=== PATIENT | female | born 1950 | race Caucasian/White ===

== ENCOUNTER 2016-09-13 14:53 | Emergency (ER) | payer MEDICARE, MEDICAID ==
[~2016-09-13] VITALS: Ht 167.6 cm; Wt 77.1 kg
[~2016-09-13 14:53] MED LIST: ALBU90AE; AMIO100T4 PO; ATOR10TA PO; CARI350T PO; CELE100C2 PO; DABI150C PO; DIVA500T2 PO; ESOM40CA PO; FLUO-120 PO; FURO-144 PO; HYDR-548 PO; ISOS20TA6 PO; LEVO750T21 PO; LORA10TA68 PO; METF500T4 PO; NITR0.4T SL; NYST30CR3 TP; OXYB5TAB11 PO; PRED20TA PO; PREG50CA PO; RIVA3CAP3 PO; TEMA30CA PO; TRIA60LO8 TP; VALS160T2 PO
--- NOTE | 2016-09-13 14:53 | NUR ---
BB SELF FOR SOB AND TIGHTNESS. NAD NOTED. PT AAO X4, AMB WITH STEADY GAIT. RR EVEN AND UNLABORED. PT PLACED IN GOWN AND MONITOR. AWAITING MD FOR EVAL.
[2016-09-13] MEDS ORDERED: ALBUTEROL FS 2.5 MG/3 ML VIAL.NEB CONTNEB STA ×2 (15:31→16:16)
[2016-09-13] MEDS ORDERED: ALBUTEROL FS 2.5 MG/3 ML VIAL.NEB ONE ×2 (15:38→16:23)
[2016-09-13] MEDS ORDERED: IPRATROPIUM NEB FS 0.5 MG/2.5 ML AMPUL.NEB ONE ×2 (15:38→16:23)
[2016-09-13] MEDS: IPRATROPIUM NEB FS 0.5 MG/2.5 ML AMPUL.NEB NEB PRN ×2 (15:40→16:25)
[2016-09-13] MEDS ORDERED: AZITHROMYCIN 250 MG TABLET PO STA (15:42)
[2016-09-13] MEDS ORDERED: methylPREDNISolone SOD SUCC 125 MG/2ML VIAL ONE (15:53)
[2016-09-13] MEDS ORDERED: methylPREDNISolone SOD SUCC 125 MG/2ML VIAL IV SCH (16:00)
[2016-09-13] MEDS ORDERED: AZITHROMYCIN 250 MG TABLET ONE (16:05)
[2016-09-13] MEDS ORDERED: LEVOFLOXACIN (500MG) 500 MG TABLET ONE (16:19)
--- NOTE | 2016-09-13 16:20 | NUR ---
CALLED RT FOR BREATHING TREATMENT
[2016-09-13] MEDS ORDERED: LEVOFLOXACIN (500MG) 500 MG TABLET PO STA (16:24)
[2016-09-13 17:06] VITALS: BP 144/71
--- NOTE | 2016-09-13 17:08 | NUR ---
Patient discharged to home in stable condition. Written and verbal after care instructions given. Patient verbalizes understanding of instruction.IV removed. Catheter intact and site benign. Pressure and 4x4 applied to site. No bleeding noted. ambulatory with steady gait. no further complaints.
== END 2016-09-13 17:08 | disposition home or self-care (01) ==
LOC: ER 14:58
DX: J44.1 Chronic obstructive pulmonary disease with (acute) exacerbation (principal); J45.909 Unspecified asthma, uncomplicated; I10 Essential (primary) hypertension; K21.9 Gastro-esophageal reflux disease without esophagitis; E11.9 Type 2 diabetes mellitus without complications; H54.8 Legal blindness, as defined in USA; Z88.0 Allergy status to penicillin; Z88.1 Allergy status to other antibiotic agents; Z88.8 Allergy status to other drugs, medicaments and biological substances
CPT/HCPCS: 71010-TC; A4606; J2930; Z7610

== ENCOUNTER 2018-02-23 12:51 | Emergency (ER) | payer MEDICARE, MEDICAID ==
[~2018-02-23] VITALS: Ht 154.9 cm; Wt 93.0 kg
[~2018-02-23 12:51] MED LIST changes: -METF500T4 PO; +METF500T6 PO
[2018-02-23] MEDS ORDERED: predniSONE 20 MG TABLET PO ONE (13:00)
[2018-02-23] MEDS ORDERED: ALBUTEROL FS 2.5 MG/3 ML VIAL.NEB NEB ONE (13:00)
[2018-02-23] MEDS ORDERED: IPRATROPIUM NEB FS 0.5 MG/2.5 ML AMPUL.NEB NEB ONE (13:00)
--- NOTE | 2018-02-23 13:00 | NUR ---
BIBRA 102 C/O SOB, PT USED HER NEBULIZER AT HOME TOWER HAND WITH NO RELIEF. NOTED AUDIBLE WHEEZING. MD AT BS FOR EVAL. CALLED FOR RT. SAFETY AND COMFORT MEASURES PROVIDED. WILL MONITOR.
[2018-02-23] MEDS ORDERED: predniSONE 20 MG TABLET ONE (13:07)
[2018-02-23] MEDS ORDERED: IPRATROPIUM NEB FS 0.5 MG/2.5 ML AMPUL.NEB ONE (13:13)
[2018-02-23] MEDS ORDERED: ALBUTEROL FS 2.5 MG/3 ML VIAL.NEB ONE (13:13)
--- NOTE | 2018-02-23 13:39 | NUR ---
CA AT BS.
[2018-02-23] MEDS ORDERED: ALBUTEROL FS 2.5 MG/0.5 ML VIAL.NEB ONE (13:41)
[2018-02-23 13:47] LABS: BASOPHILS # (AUTO) 0.1 /CMM (0.0-0.2); BASOPHILS % (AUTO) 0.8 % (0.0-2.0); HEMATOCRIT 38 % (33-45); LYMPHOCYTES # (AUTO) 3.3 /CMM (0.8-4.8); MEAN CORPUSCULAR HEMOGLOBIN 31 PG (26.0-33.0); MEAN CORPUSCULAR HGB CONC 34 g/dl (31.0-36.0); MEAN CORPUSCULAR VOLUME 90 fL (82-100); MONOCYTES # (AUTO) 0.5 /CMM (0.1-1.30); MONOCYTES % (AUTO) 4.1 % (2.0-12.0); NEUTROPHILS # (AUTO) 8.1 /CMM (1.8-8.9); NEUTROPHILS % (AUTO) 67.1 % (43.0-81.0); PLATELET COUNT (AUTO) 210 /CMM (150-450); RDW COEFFICIENT OF VARIATION 12.9 (11.5-15.0); RED BLOOD CELL COUNT(AUTO) 4.24 MIL/uL (4.0-5.2); WHITE BLOOD COUNT (AUTO) 12.1 K/uL (4.3-11.0)
[2018-02-23 13:53] LABS: CALCIUM, SERUM 8.5 mg/dL (8.5-10.1); CARBON DIOXIDE 26 mmol/L (21-32); CHLORIDE 106 mmol/L (98-107); CREATININE 0.7 mg/dL (0.6-1.3); GLUCOSE 114 mg/dL (74-106); POTASSIUM 3.7 mmol/L (3.5-5.1); SODIUM SERUM 140 mmol/L (136-145); UREA NITROGEN, BLOOD 12 mg/dL (7-18)
[2018-02-23] MEDS ORDERED: ALBUTEROL FS 2.5 MG/0.5 ML VIAL.NEB NEB ONE (14:00)
[2018-02-23 14:01] LABS: TROPONIN I < 0.017 ng/mL (0.00-0.056)
[2018-02-23 14:06] LABS: B-TYPE NATRIURETIC PEPTIDE 843 PG/ML (0-125)
--- NOTE | 2018-02-23 14:16 | NUR ---
CALLED [facility] ENGRAVING PRESS OPERATOR WAS PAGED.
[2018-02-23 14:30] VITALS: BP 132/89
--- NOTE | 2018-02-23 15:01 | NUR ---
REPORT GIVEN TO SILVIA JOHNSON FOR 315-2.
[2018-02-23] MEDS ORDERED: DILT120C47 PO (15:11)
[2018-02-23] MEDS ORDERED: MELO-107 PO (15:11)
[2018-02-23] MEDS ORDERED: ISOS30TA6 PO (15:11)
[2018-02-23] MEDS ORDERED: ASPI-869 PO (15:11)
--- NOTE | 2018-02-23 15:16 | NUR ---
DR. ELSA Rubin AT AND WILL DISCHARGE PATIENT TO HOME. ORDERS CARRIED OUT. GAVE PT RX FOR PREDNISONE AND AZITHROMYCIN. Addendum: 02/23/18 at 1533 by BETTINA ABX CHANGED TO CRISTOBAL
== END 2018-02-23 15:36 | disposition home or self-care (01) ==
LOC: ER 12:52 → TELE 15:15 → UNDOADMIN 15:15 → ER 15:36
DX: J44.1 Chronic obstructive pulmonary disease with (acute) exacerbation (principal); G40.909 Epilepsy, unspecified, not intractable, without status epilepticus; I50.9 Heart failure, unspecified; I48.91 Unspecified atrial fibrillation; K21.9 Gastro-esophageal reflux disease without esophagitis; E11.9 Type 2 diabetes mellitus without complications; H54.8 Legal blindness, as defined in USA; E66.9 Obesity, unspecified; Z88.0 Allergy status to penicillin; Z88.1 Allergy status to other antibiotic agents; Z88.8 Allergy status to other drugs, medicaments and biological substances; Z60.2 Problems related to living alone; Z87.891 Personal history of nicotine dependence
CPT/HCPCS: 36415; 71045; 80048; 83880; 84484; 85025; 93005; 94640 ×2; 99285; A4606; J7512; Z7610

== ENCOUNTER 2018-06-16 14:28 | Inpatient (IN) | payer MEDICARE, MEDICAID ==
[~2018-06-16] VITALS: Ht 160 cm; Wt 96.2 kg
[~2018-06-16 14:28] MED LIST changes: -ALBU90AE; +ASPI-869 PO; -CELE100C2 PO; -DABI150C PO; +DILT120C47 PO; -DIVA500T2 PO; +HYDR-4354 PO; -HYDR-548 PO; -ISOS20TA6 PO; +ISOS30TA6 PO; -LEVO750T21 PO; -LORA10TA68 PO; +MELO-107 PO; +METF-440 PO; -METF500T6 PO; -NITR0.4T SL; -NYST30CR3 TP; -PRED20TA PO; -TEMA30CA PO; -TRIA60LO8 TP
--- NOTE | 2018-06-16 15:50 | NUR ---
PT WAS BROUGHT UP TO THE FLOOR AT THIS TIME
[2018-06-16] MEDS ORDERED: IV NS 0.9% 1,000 ML IV PRN (15:56)
[2018-06-16] MEDS ORDERED: ONDANSETRON HCL/PF 4 MG/2 ML VIAL IVP PRN (16:00)
[2018-06-16] MEDS ORDERED: ACETAMINOPHEN 325 MG TABLET PO PRN (16:00)
[2018-06-16] MEDS ORDERED: ZOLPIDEM TARTRATE 5 MG TABLET PO PRN (16:00)
--- NOTE | 2018-06-16 16:16 | NUR ---
ADMISSION NOTES PT WAS RECEIVED FROM EMT DIRECT ADMIT FROM JEREMIAS, A/O X3, AMBULATORY, RIGHT AC 20 GAUGE IV THAT IS PATENT AND INTACT, PT REFUSED SKIN ASSESSMENT, BELONGINGS WERE BROUGHT ALONG WITH THE PATIENT, NOTED TO BE SOB ON EXERTION. WILL MONITOR ACCORDINGLY
[2018-06-16] MEDS ORDERED: HYDROCODONE/APAP 10/325MG 1 EA TABLET PO PRN (16:30)
--- NOTE | 2018-06-16 16:30 | NUR ---
PT WAS ADMITTED TO THIS FLOOR AND IS NOW CURRENTLY THREATENING TO LEAVE A
--- NOTE | 2018-06-16 16:35 | NUR ---
DR. MINA WILKERSON PRESENT AT BEDSIDE TALKING TO PT
[2018-06-16] MEDS ORDERED: PRED20TA PO (16:57)
[2018-06-16] MEDS ORDERED: CEFU500T66 PO (16:57)
[2018-06-16] MEDS ORDERED: AZITHROMYCIN 250 MG TABLET PO SCH (17:00)
[2018-06-16] MEDS ORDERED: DOXYCYCLINE HYCLATE (100 MG) 100 MG TABLET PO SCH (17:00)
[2018-06-16] MEDS ORDERED: CARISOPRODOL 350 MG TABLET PO SCH (17:00)
[2018-06-16] MEDS ORDERED: INSULIN REGULAR, HUMAN 100 UNIT/ML 3 ML VIAL SQ ONE (17:00)
[2018-06-16] MEDS ORDERED: PREGABALIN 25 MG CAPSULE PO SCH (17:00)
--- NOTE | 2018-06-16 17:00 | NUR ---
JONA WILKERSON TALKED TO PT BUT UNABLE TO CONVINCE HER TO STAY. SHE WAS ADAMANT ABOUT LEAVING AND EVEN AFTER RECEIVING EDUCATION FROM THE DOCTOR SHE REFUSED TO LISTEN TO HIS RECOMMENDATIONS. DR. WILKERSON ORDERED A BLOOD SUGAR CHECK WHILE TALKING TO HER AND HER BLOOD GLUCOSE CAMEBACK AT 238. HE ORDERED 4 UNITS OF INSULIN WHICH WERE GIVEN. IV AND ID BANDS WERE REMOVED RIGHT BEFORE THE PATIENT LEFT. AMA PAPER WAS SIGNED BY THE PATIENT. PATIENT LEFT AMA AT THIS TIME Addendum: 06/16/18 at 1728 by YOON DILL RN PT ALSO REFUSED TO ACCEPT AND SIGN [employer] PAPERWORK
[2018-06-16 17:11] LABS: HEMATOCRIT 42 % (33-45); HEMOGLOBIN 13.9 g/dL (11.5-14.8); MEAN CORPUSCULAR HGB CONC 34 g/dl (31.0-36.0); MEAN CORPUSCULAR VOLUME 93 fL (82-100); PLATELET COUNT (AUTO) 210 /CMM (150-450); RED BLOOD CELL COUNT(AUTO) 4.44 MIL/uL (4.0-5.2); WHITE BLOOD COUNT (AUTO) 12.8 K/uL (4.3-11.0)
[2018-06-16] MEDS ORDERED: PANTOPRAZOLE 40 MG TABLET.DR PO SCH (18:00)
--- NOTE | 2018-06-16 18:31 | NUR ---
Incident Report was filed for pt leaving A Unique Id: [id number]
[2018-06-16] MEDS ORDERED: ALBUTEROL FS 2.5 MG/0.5 ML VIAL.NEB NEB SCH (19:30)
[2018-06-16] MEDS ORDERED: IPRATROPIUM NEB FS 0.5 MG/2.5 ML AMPUL.NEB NEB SCH (19:30)
[2018-06-16] MEDS ORDERED: AMIODARONE HCL 200 MG TABLET PO SCH (21:00)
[2018-06-16] MEDS ORDERED: CEFTRIAXONE 1 G in IV D5W 50 ML IV SCH (22:00)
[2018-06-16] MEDS ORDERED: ATORVASTATIN 10 MG TABLET PO SCH (22:00)
[2018-06-16] MEDS ORDERED: MONTELUKAST SODIUM (10MG) 10 MG TABLET PO SCH (22:00)
[2018-06-17] MEDS ORDERED: FUROSEMIDE 40 MG TABLET PO SCH (09:00)
[2018-06-17] MEDS ORDERED: VALSARTAN 80 MG TABLET PO SCH (09:00)
[2018-06-17] MEDS ORDERED: FLUOXETINE HCL 20 MG CAPSULE PO SCH (09:00)
[2018-06-17] MEDS ORDERED: OXYBUTYNIN CHLORIDE 5 MG TABLET PO SCH (09:00)
[2018-06-17] MEDS ORDERED: ISOSORBIDE MONONITRATE (30MG) 30 MG TAB.SR.24H PO SCH (09:00)
[2018-06-17] MEDS ORDERED: RIVASTIGMINE TARTRATE 1.5 MG CAPSULE PO SCH (09:00)
[2018-06-17] MEDS ORDERED: DILTIAZEM HCL CD 120 MG PO SCH (09:00)
[2018-06-17] MEDS ORDERED: ASPIRIN EC 325 MG TABLET.DR PO SCH (09:00)
== END 2018-06-16 17:00 | disposition left against medical advice (07) | DRG 190 ==
LOC: TELE 15:05
PROVIDERS: ADMIT Nurse Practitioner Acute Care; ATTEND Nurse Practitioner Acute Care
DX: J44.0 Chronic obstructive pulmonary disease with (acute) lower respiratory infection (principal); J15.9 Unspecified bacterial pneumonia; D68.59 Other primary thrombophilia; I48.92 Unspecified atrial flutter; J44.1 Chronic obstructive pulmonary disease with (acute) exacerbation; F17.210 Nicotine dependence, cigarettes, uncomplicated; E11.9 Type 2 diabetes mellitus without complications; I10 Essential (primary) hypertension; I25.10 Atherosclerotic heart disease of native coronary artery without angina pectoris; I48.91 Unspecified atrial fibrillation; K21.9 Gastro-esophageal reflux disease without esophagitis; F31.9 Bipolar disorder, unspecified; Z79.82 Long term (current) use of aspirin; Z79.84 Long term (current) use of oral hypoglycemic drugs
CPT/HCPCS: 36415; 82962-TC; 85027-TC; A4606; G0378; J0696; J1815; J7060; Z7610

== ENCOUNTER 2020-01-31 22:37 | Inpatient (IN) | payer MEDICARE, OTHER ==
[~2020-01-31] VITALS: Ht 153.2 cm; Wt 80.8 kg
[~2020-01-31 22:37] MED LIST changes: +CEFU500T66 PO; -FLUO-120 PO; +FLUO20CA42 PO; -OXYB5TAB11 PO; +OXYB5TAB16 PO; +PRED20TA PO
--- NOTE | 2020-01-31 22:50 | NUR ---
PATIENT CAME TO ER BED 11 BIB RA FROM HOME C/O NONRADIATING MIDSTERNAL CHEST PAIN SINCE 2099. PATIENT STATES THAT SHE WAS NOT DOING ANYTHING STRENUOUS AT THE TIME. PATIENT ALSO STATES SHE TOOK 2 SL NITROGLYCERIN TABLETS PRIOR TO ARRIVAL WITH NO RELIEF. PATIENT IS AAOX4. NO SOB. BREATHING EVENLY AND UNLABORED ON ROOM AIR. CONNECTED TO THE MONITOR.
--- NOTE | 2020-01-31 22:59 | NUR ---
BLOOD COLLECTED AND SENT TO LAB.
--- NOTE | 2020-01-31 23:01 | NUR ---
EKG AT BEDSIDE
[2020-01-31 23:06] LABS: BASOPHILS # (AUTO) 0.1 /CMM (0.0-0.2); BASOPHILS % (AUTO) 0.8 % (0.0-2.0); EOSINOPHILS % (AUTO) 1.7 % (0.0-6.0); HEMATOCRIT 38 % (33-45); HEMOGLOBIN 12.7 g/dL (11.5-14.8); LYMPHOCYTES # (AUTO) 4.2 /CMM (0.8-4.8); LYMPHOCYTES % (AUTO) 37.1 % (20.0-44.0); MEAN CORPUSCULAR HGB CONC 33 g/dl (31.0-36.0); MEAN CORPUSCULAR VOLUME 94 fL (82-100); MONOCYTES # (AUTO) 0.7 /CMM (0.1-1.30); MONOCYTES % (AUTO) 5.8 % (2.0-12.0); NEUTROPHILS # (AUTO) 6.1 /CMM (1.8-8.9); NEUTROPHILS % (AUTO) 54.6 % (43.0-81.0); PLATELET COUNT (AUTO) 189 /CMM (150-450); RED BLOOD CELL COUNT(AUTO) 4.06 MIL/uL (4.0-5.2); WHITE BLOOD COUNT (AUTO) 11.2 K/uL (4.3-11.0)
[2020-01-31 23:20] LABS: CALCIUM, SERUM 8.5 mg/dL (8.5-10.1); CARBON DIOXIDE 25 mmol/L (21-32); CHLORIDE 107 mmol/L (98-107); CREATININE 0.7 mg/dL (0.6-1.3); GLUCOSE 111 mg/dL (74-106); POTASSIUM 3.8 mmol/L (3.5-5.1); SODIUM SERUM 142 mmol/L (136-145); UREA NITROGEN, BLOOD 16 mg/dL (7-18)
--- NOTE | 2020-01-31 23:21 | NUR ---
, JUVENAL NICHOLSONZ, SON'S PHONE NUMBER.
--- NOTE | 2020-01-31 23:35 | NUR ---
PATIENT'S CORONAVIRUS SWAB SAMPLE COLLECTED AND SENT TO THE LABORATORY.
[2020-01-31 23:46] LABS: B-TYPE NATRIURETIC PEPTIDE 594 PG/ML (0-125)
[2020-01-31] MEDS ORDERED: ONDANSETRON HCL/PF 4 MG/2 ML VIAL ONE (23:56)
[2020-01-31] MEDS ORDERED: MORPHINE SULFATE INJ 2 MG/ML DISP.SYRIN ONE (23:56)
[2020-02-01] MEDS ORDERED: ONDANSETRON HCL/PF 4 MG/2 ML VIAL IVP ONE
--- NOTE | 2020-02-01 00:24 | NUR ---
ANGELA DNP AT BEDSIDE FOR EVALUATION
--- NOTE | 2020-02-01 00:34 | NUR ---
BED ASSIGNMENT 304-2
--- NOTE | 2020-02-01 00:34 | NUR ---
REC'D NEG COVID RESULTS
--- NOTE | 2020-02-01 00:54 | NUR ---
REPORT GIVEN TO PERRY JOHNSON FOR HERNÁN.
[2020-02-01] MEDS ORDERED: NITROGLYCERIN PACKET 1 GM PACKET ONE (00:57)
[2020-02-01] MEDS ORDERED: MORPHINE SULFATE INJ 4 MG/ML DISP.SYRIN ONE (00:57)
[2020-02-01] MEDS ORDERED: ONDANSETRON HCL/PF 4 MG/2 ML VIAL IVP PRN (01:00)
[2020-02-01] MEDS ORDERED: ACETAMINOPHEN 325 MG TABLET PO PRN (01:00)
[2020-02-01] MEDS ORDERED: TRAZODONE 50 MG TABLET PO PRN (01:00)
[2020-02-01] MEDS ORDERED: DEXTROSE 50%-WATER 50 ML DISP.SYRIN IV PRN (01:00)
[2020-02-01] MEDS ORDERED: HYDROCODONE/APAP 5/325MG 1 EACH TABLET PO PRN (01:00)
[2020-02-01] MEDS ORDERED: diphenhydrAMINE HCL 25 MG CAPSULE PO PRN (01:00)
[2020-02-01] MEDS ORDERED: INSULIN REGULAR, HUMAN 100 UNIT/ML 3 ML VIAL SQ PRN (01:00)
[2020-02-01] MEDS ORDERED: MAG HYDROX/AL HYDROX/SIMETH 30 ML UDC PO PRN (01:00)
[2020-02-01] MEDS ORDERED: MORPHINE SULFATE INJ 2 MG/ML DISP.SYRIN IV ONE ×2 (01:00)
[2020-02-01] MEDS ORDERED: MORPHINE SULFATE INJ 2 MG/ML DISP.SYRIN IV PRN (01:00)
[2020-02-01] MEDS ORDERED: NITROGLYCERIN PACKET 1 GM PACKET TD ONE (01:00)
[2020-02-01] MEDS ORDERED: MAGNESIUM HYDROXIDE 30 ML UDC PO PRN (01:00)
--- NOTE | 2020-02-01 01:15 | NUR ---
PATIENT ARRIVED FROM ER, AWAKE A/O X4. NO SOB NOTED. NO COMPLAIN OF CHEST PAIN AT THIS TIME. AMBULATED TO THE BATHROOM WITH STEADY GAIT. PATIENT SAID THAT SHE IS LEGALLY BLIND. BED ALARM ON. CALL LIGHT WITHIN REACH. BED IN LOWEST AND LOCKED POSITION.
--- NOTE | 2020-02-01 01:20 | NUR ---
PATIENT TAKEN TO ASSIGNED ROOM.
[2020-02-01 01:30] VITALS: BP 121/87
--- NOTE | 2020-02-01 02:11 | NUR ---
PATIENT REFUSED THE BED ALARM ON. ADVISED THE IMPORTANCE OF BED ALARM PATIENT STILL REFUSED, PATIENT WAS MAD, CHARGE NURSE MADE AWARE. PATIENT IS SITTING AT THE EDGE OF THE BED. CALL LIGHT WITHIN REACH. BED IN LOWEST AND LOCKED POSITION.
--- NOTE | 2020-02-01 03:03 | NUR ---
PATIENT JUST HAD A SNACK, PATIENT IN BED, BED ALARM ON, MECHANICAL INSULATOR GENICE AWARE THAT THE PATIENT IS FALL RISK. CALL LIGHT WITHIN REACH.
--- NOTE | 2020-02-01 04:30 | NUR ---
PATIENT WAS ASKING FOR APAP FOR HER SLEEP APNEA,ADVISED PATIENT THAT ORDER FROM THE MD NEEDS TO BE OBTAINED, THEN PATIENT VERBALIZED " BUT YOU DON'T HAVE IT HERE I KNOW". OFFERED AN O2 FOR NOW PATIENT REFUSED. CHARGE NURSE AWARE. PATIENT WAS ANGRY AND RUDE, AND YELLING.
--- NOTE | 2020-02-01 04:50 | NUR ---
PATIENT VERBALIZED THAT SHE WANTS TO GO AMA. CHARGE NURSE AWARE. INFORMED LINDEN.
--- NOTE | 2020-02-01 04:56 | NUR ---
PATIENT REFUSED TO SIGN THE AMA FORM, CHARGE NURSE AWARE. RIGHT AC G20 REMOVED,TIP IS INTACT. NO BLEEDING NOTED.
--- NOTE | 2020-02-01 05:16 | NUR ---
PAINT ROLLER COVERMAKERMj VALERA MADE AWARE THAT THE PATIENT REFUSED TO SIGN THE AMA FORM.
--- NOTE | 2020-02-01 05:48 | NUR ---
PATIENT COMPLAINED OF CHEST PAIN 01/31. AND VERBALIZED" I WANT TO STAY, I CANNOT LEAVE". CHARGE NURSE AWARE. OFFERED THE NORCO FOR NOW SINCE THE PATIENT HAS NO IV SITE, PATIENT REFUSED. SHE SAID SHE WILL WAIT UNTIL THE IV REINSERTED.
[2020-02-01 05:56] VITALS: BP 122/53
--- NOTE | 2020-02-01 06:20 | NUR ---
PATIENT LEFT AMA WITHOUT SIGNING THE AMA FORM, CHARGE NURSE AWARE. AND MS. WALSH. INSTRUCTED PATIENT THE RISKS OF AMA AND BENEFITS OF STAYING.
--- NOTE | 2020-02-01 06:47 | NUR ---
TRAN CHEATHAM RE: PATIENT LEFT AMA AT 0620.
[2020-02-01] MEDS ORDERED: PANTOPRAZOLE 40 MG TABLET.DR PO SCH (07:30)
[2020-02-01] MEDS ORDERED: BLOOD SUGAR DIAGNOSTIC 1 EACH STRIP IN SCH (07:30)
[2020-02-01] MEDS ORDERED: METFORMIN 500 MG TABLET PO SCH (08:00)
[2020-02-01] MEDS ORDERED: AMIODARONE HCL 200 MG TABLET PO SCH (08:00)
--- NOTE | 2020-02-01 08:03 | NUR ---
INCIDENT REPORT NUMBER [id number]
[2020-02-01] MEDS ORDERED: FLUOXETINE HCL 20 MG CAPSULE PO SCH (09:00)
[2020-02-01] MEDS ORDERED: POTASSIUM CHLORIDE 10 MEQ TABLET.SA PO SCH (09:00)
[2020-02-01] MEDS ORDERED: ISOSORBIDE MONONITRATE (30MG) 30 MG TAB.SR.24H PO SCH (09:00)
[2020-02-01] MEDS ORDERED: DILTIAZEM HCL CD 120 MG PO SCH (09:00)
[2020-02-01] MEDS ORDERED: FUROSEMIDE 40 MG TABLET PO SCH (09:00)
[2020-02-01] MEDS ORDERED: ASPIRIN 81 MG TAB.CHEW PO SCH (09:00)
[2020-02-01] MEDS ORDERED: VALSARTAN 80 MG TABLET PO SCH (09:00)
[2020-02-01] MEDS ORDERED: TIOT4MIS2 INH (17:31)
[2020-02-01] MEDS ORDERED: DIVA-78 PO (17:31)
[2020-02-01] MEDS ORDERED: ALPR0.5T8 PO (17:31)
[2020-02-01] MEDS ORDERED: POTA10CA43 PO (17:31)
[2020-02-01] MEDS ORDERED: NITR0.4T48 SL (21:08)
[2020-02-01] MEDS ORDERED: ATORVASTATIN 10 MG TABLET PO SCH (22:00)
[2020-02-02] MEDS ORDERED: IV NS 0.9% 250 ML IV ONE (12:50)
[2020-02-02] MEDS ORDERED: IOHEXOL-350 100 ML VIAL IV ONE (12:50)
== END 2020-02-01 06:20 | disposition left against medical advice (07) | DRG 303 ==
LOC: ER 22:40 → TELE 02-01 00:37
PROVIDERS: ADMIT Nurse Practitioner Acute Care; ATTEND Nurse Practitioner Acute Care
DX: I25.10 Atherosclerotic heart disease of native coronary artery without angina pectoris (principal); I48.20 Chronic atrial fibrillation, unspecified; E66.9 Obesity, unspecified; E78.5 Hyperlipidemia, unspecified; F17.210 Nicotine dependence, cigarettes, uncomplicated; I25.2 Old myocardial infarction; I10 Essential (primary) hypertension; J44.9 Chronic obstructive pulmonary disease, unspecified; E11.40 Type 2 diabetes mellitus with diabetic neuropathy, unspecified; G47.00 Insomnia, unspecified; G47.33 Obstructive sleep apnea (adult) (pediatric); Z68.34 Body mass index [BMI] 34.0-34.9, adult; F32.9 Major depressive disorder, single episode, unspecified; Z79.84 Long term (current) use of oral hypoglycemic drugs; Z71.6 Tobacco abuse counseling
CPT/HCPCS: 36415; 71045-TC; 80048-TC; 83880; 84484-TC; 85025-TC; 87081-TC; G0378; J1815; J2270; J2405; J7050; Q9967

== ENCOUNTER 2020-02-01 16:25 | Inpatient (IN) | payer MEDICARE, OTHER ==
[~2020-02-01] VITALS: Ht 162.6 cm; Wt 83.9 kg
[2020-02-01] MEDS ORDERED: POTA10CA43 PO (17:31)
[2020-02-01] MEDS ORDERED: DIVA-78 PO (17:31)
[2020-02-01] MEDS ORDERED: ALPR0.5T8 PO (17:31)
[2020-02-01] MEDS ORDERED: TIOT4MIS2 INH (17:31)
[2020-02-01 17:32] LABS: BASOPHILS % (AUTO) 0.5 % (0.0-2.0); EOSINOPHILS % (AUTO) 1.4 % (0.0-6.0); HEMATOCRIT 38 % (33-45); HEMOGLOBIN 12.5 g/dL (11.5-14.8); LYMPHOCYTES # (AUTO) 2.3 /CMM (0.8-4.8); LYMPHOCYTES % (AUTO) 20.6 % (20.0-44.0); MEAN CORPUSCULAR HGB CONC 33 g/dl (31.0-36.0); MEAN CORPUSCULAR VOLUME 94 fL (82-100); MONOCYTES # (AUTO) 0.5 /CMM (0.1-1.30); MONOCYTES % (AUTO) 4.8 % (2.0-12.0); NEUTROPHILS % (AUTO) 72.7 % (43.0-81.0); PLATELET COUNT (AUTO) 186 /CMM (150-450); RED BLOOD CELL COUNT(AUTO) 4.02 MIL/uL (4.0-5.2)
[2020-02-01 17:42] LABS: CALCIUM, SERUM 8.4 mg/dL (8.5-10.1); CARBON DIOXIDE 27 mmol/L (21-32); CHLORIDE 108 mmol/L (98-107); CREATININE 0.7 mg/dL (0.6-1.3); GLUCOSE 96 mg/dL (74-106); POTASSIUM 3.7 mmol/L (3.5-5.1); SODIUM SERUM 143 mmol/L (136-145); UREA NITROGEN, BLOOD 11 mg/dL (7-18)
--- NOTE | 2020-02-01 19:00 | NUR ---
assumed care of pt at 1900; "bib ems c/o midsternal chest pain, non radiating since yesterday" pt aaox4, pt on monitor, no acute events noted, not in any distress, per report, AMA'd today from inpatient. back for same reason. awaiting bed assignment and admit
[2020-02-01] MEDS ORDERED: ZOLPIDEM TARTRATE 5 MG TABLET PO PRN (19:30)
[2020-02-01] MEDS ORDERED: ISOSORBIDE MONONITRATE (30MG) 30 MG TAB.SR.24H PO ONE (19:30)
[2020-02-01] MEDS ORDERED: MAG HYDROX/AL HYDROX/SIMETH 30 ML UDC PO PRN (19:30)
[2020-02-01] MEDS ORDERED: ONDANSETRON HCL/PF 4 MG/2 ML VIAL IVP PRN (19:30)
[2020-02-01] MEDS ORDERED: ASPIRIN 81 MG TAB.CHEW PO ONE (19:30)
[2020-02-01] MEDS ORDERED: NITROGLYCERIN 0.4 MG/TAB BOTTLE SL ONE (19:30)
[2020-02-01] MEDS ORDERED: DILTIAZEM HCL CD 120 MG PO ONE (19:30)
[2020-02-01] MEDS ORDERED: ACETAMINOPHEN 325 MG TABLET PO PRN (19:30)
[2020-02-01] MEDS ORDERED: DEXTROSE 50%-WATER 50 ML DISP.SYRIN IV PRN (19:30)
[2020-02-01] MEDS ORDERED: Z GUARD REMEDY 2 OZ OINT TP PRN (19:30)
[2020-02-01] MEDS ORDERED: HYDROCODONE/APAP 5/325MG 1 EACH TABLET PO PRN (19:30)
[2020-02-01] MEDS ORDERED: MORPHINE SULFATE INJ 2 MG/ML DISP.SYRIN IV PRN (19:30)
[2020-02-01] MEDS ORDERED: MAGNESIUM HYDROXIDE 30 ML UDC PO PRN (19:30)
[2020-02-01] MEDS ORDERED: ASPIRIN 81 MG TAB.CHEW ONE (19:42)
[2020-02-01] MEDS ORDERED: NITROGLYCERIN 0.4 MG/TAB BOTTLE ONE (19:42)
--- NOTE | 2020-02-01 20:00 | NUR ---
REPORT GIVEN TO ELIZABETH PINZON FOR HERNÁN; PT WILL BE TRANSPORTED TO 3RD FLOOR
--- NOTE | 2020-02-01 20:10 | NUR ---
MS RN ADMITTING NOTES PATIENT VIA GURNEY, ACCOMPANIED BY ER STAFF. PATIENT A/O X 3-4, STABLE ON RA WITH BREATHING EVEN AND UNLABORED, NO SOB NOTED. NO SIGNS OF ACUTE DISTRESS. NO COMPLAINTS OF PAIN OR DISCOMFORT AT THE MOMENT. TELE MONITORS PLACED. BELONGINGS ACCOUNTED FOR. HOME MED TAKEN. PATIENT ORIENTED TO ROOM AND STAFF. VITALS TAKEN 118/ 75 95% T 97.9 HR 64. SKIN ASSESSMENT REFUSED. PATIENT ORIENTED TO ROOM AND STAFF. SAFETY PRECAUTIONS IN PLACE WITH BED IN LOWEST POSITION, CALL LIGHT WITHIN REACH, BREAKS ON, SIDE RAILS UP. WILL CONTINUE TO MONITOR THROUGHOUT THE SHIFT.
[2020-02-01] MEDS: IPRATROPIUM NEB FS 0.5 MG/2.5 ML AMPUL.NEB NEB SCH (20:15)
[2020-02-01 20:20] VITALS: BP 118/75
[2020-02-01 21:00] VITALS: BP 118/75
[2020-02-01] MEDS ORDERED: NITR0.4T48 SL (21:08)
--- NOTE | 2020-02-01 21:27 | NUR ---
MS RN NOTES PATIENTS SON DROPPED OFF CPAP MACHINE. ACCOUNTED INTO BELONGINGS.
[2020-02-01] MEDS ORDERED: diphenhydrAMINE HCL 50 MG CAPSULE PO PRN (21:30)
[2020-02-01] MEDS ORDERED: TRAZODONE 50 MG TABLET PO PRN (21:30)
[2020-02-01] MEDS: BLOOD SUGAR DIAGNOSTIC 1 EACH STRIP IN SCH (21:51)
[2020-02-01] MEDS ORDERED: OXYBUTYNIN CHLORIDE 5 MG TABLET PO SCH (22:00)
[2020-02-01] MEDS ORDERED: ATORVASTATIN 10 MG TABLET PO SCH (22:00)
--- NOTE | 2020-02-01 22:00 | NUR ---
RN NOTES PATIENT REFUSED SCD DEVICES.
--- NOTE | 2020-02-01 22:51 | NUR ---
RT NOTES RN NOTIFIED ME OF Q6 HHN TX. WILL GIVE ON SCHEDULED TIME. NO DISTRESS NOTED.
--- NOTE | 2020-02-01 23:44 | NUR ---
MS RN NOTES NOTIFIED MD ANGELA CHEATHAM ABOUT PATIENT VTE SCORE OF 5, CHEMICAL PROPHYLAXIS OF 40 MG LOVENOX SQ Q24H ORDERED. PER OK TO USE CPAP FROM HOME.
--- NOTE | 2020-02-01 23:49 | NUR ---
MS RN NOTES PER RT UNABLE TO USE CPAP FROM HOME PER POLICY. PATIENT STABLE. NO SIGNS OF ACUTE DISTRESS. WILL CONTINUE TO MONITOR THROUGHOUT THE NIGHT.
[2020-02-02] VITALS: BP_SYST 104; BP_SYST 107; BP_DIAS 57; BP_DIAS 63
[2020-02-02] MEDS: IPRATROPIUM NEB FS 0.5 MG/2.5 ML AMPUL.NEB NEB SCH ×3 (01:18→13:17)
[2020-02-02 04:14] VITALS: BP 107/63
[2020-02-02] MEDS: INSULIN REGULAR, HUMAN 100 UNIT/ML 3 ML VIAL SQ PRN ×2 (06:42→11:49)
[2020-02-02] MEDS: BLOOD SUGAR DIAGNOSTIC 1 EACH STRIP IN SCH ×2 (06:45→11:48)
--- NOTE | 2020-02-02 06:47 | NUR ---
RN CLOSING NOTES PATIENT IN BED RESTING, A/O X 3. STABLE ON RA WITH BREATHING EVEN AND UNLABORED, NO SOB NOTED. NO SIGNS OF ACUTE DISTRESS. NO COMPLAINTS OF PAIN OR DISCOMFORT AT THE MOMENT. TELE MONITOR READING AFIB CONTROLLED. IV LOCATED ON AC #24 SL. SAFETY PRECAUTIONS IN PLACE WITH BED IN LOWEST POSITION, CALL LIGHT WITHIN REACH, BREAKS ON, SIDE RAILS UP. WILL CONTINUE TO MONITOR THROUGHOUT THE NIGHT.
[2020-02-02 07:16] LABS: BASOPHILS # (AUTO) 0.1 /CMM (0.0-0.2); BASOPHILS % (AUTO) 0.7 % (0.0-2.0); EOSINOPHILS % (AUTO) 1.8 % (0.0-6.0); HEMATOCRIT 39 % (33-45); HEMOGLOBIN 12.7 g/dL (11.5-14.8); LYMPHOCYTES # (AUTO) 2.8 /CMM (0.8-4.8); LYMPHOCYTES % (AUTO) 33.8 % (20.0-44.0); MEAN CORPUSCULAR HGB CONC 33 g/dl (31.0-36.0); MEAN CORPUSCULAR VOLUME 94 fL (82-100); MONOCYTES # (AUTO) 0.4 /CMM (0.1-1.30); MONOCYTES % (AUTO) 5.1 % (2.0-12.0); NEUTROPHILS # (AUTO) 4.8 /CMM (1.8-8.9); NEUTROPHILS % (AUTO) 58.6 % (43.0-81.0); PLATELET COUNT (AUTO) 192 /CMM (150-450); WHITE BLOOD COUNT (AUTO) 8.2 K/uL (4.3-11.0)
[2020-02-02] MEDS ORDERED: PANTOPRAZOLE 40 MG TABLET.DR PO SCH (07:30)
--- NOTE | 2020-02-02 07:35 | NUR ---
PAPER WINDER NOTES RECEIVED PT IN BED, AWAKE, A/O X3-4. TOLERATING RA, WITH NO ACUTE RESPIRATORY DISTRESS NOTED. PT DENIES ANY CHEST PAIN SINCE 11PM LAST NIGHT SHE REPORTED. ON TELE MONITORING CONTROLLED AFIB 64, PER SHEET TURNER/EDGAR PT RUNS LOW 39 WITH AFIB. PT AWARE REGARDING SCHEDULED ECHOCARDIO TODAY. PT CONCERNED AND WANTED TO GO HOME WELL TODAY, TO NOTIFY PIV TO RFA G24, FLUSHED WITH NS, INTACT AND OPERATIONAL. PT KEPT COMFORTABLE. CALL LIGHT KEPT WITHIN REACH. PT'S BED IN LOWEST, LOCKED POSITION WITH SR X3. WILL CONTINUE PLAN OF CARE.
[2020-02-02 07:46] LABS: CALCIUM, SERUM 8.6 mg/dL (8.5-10.1); CREATININE 0.6 mg/dL (0.6-1.3); MAGNESIUM 1.8 mg/dL (1.8-2.4); PHOSPHORUS 3.5 mg/dL (2.5-4.9); POTASSIUM 4.2 mmol/L (3.5-5.1)
[2020-02-02 08:00] VITALS: BP 100/48
[2020-02-02 09:00] VITALS: BP 100/48
[2020-02-02] MEDS ORDERED: ASPIRIN 81 MG TAB.CHEW PO SCH (09:00)
[2020-02-02] MEDS ORDERED: VALSARTAN 80 MG TABLET PO SCH (09:00)
[2020-02-02] MEDS ORDERED: FUROSEMIDE 40 MG TABLET PO SCH (09:00)
[2020-02-02] MEDS ORDERED: ENOXAPARIN SODIUM 40 MG/0.4 ML DISP.SYRIN SQ SCH (09:00)
[2020-02-02] MEDS ORDERED: METFORMIN 500 MG TABLET PO SCH (09:00)
[2020-02-02] MEDS ORDERED: RIVASTIGMINE TARTRATE 1.5 MG CAPSULE PO SCH (09:00)
[2020-02-02] MEDS ORDERED: DIVALPROEX SODIUM 500 MG TABLET.DR PO SCH (09:00)
[2020-02-02] MEDS ORDERED: FLUOXETINE HCL 20 MG CAPSULE PO SCH (09:00)
[2020-02-02] MEDS ORDERED: POTASSIUM CHLORIDE 10 MEQ TABLET.SA PO SCH (09:00)
[2020-02-02] MEDS ORDERED: AMIODARONE HCL 200 MG TABLET PO SCH (09:00)
--- NOTE | 2020-02-02 09:15 | NUR ---
MS RN NOTES RECEIVED ORDER FROM DR. KAY REGARDING LEXISCAN/NM MYOCARDIAL STRESS TEST, PT MADE AWARE. PT REFUSED TO HAVE IT AT THIS TIME. PT CONTACTED OWN NIB ASSEMBLER/ AT . I/RN SPOKE TO RN/MAYCOL REGARDING PT'S PREFERENCE FOR DR. HAYDEN TO DO IT IN HIS OFFICE INSTEAD OF HAVING IT DONE HERE AT [facility] WITH DR. KAY. AWAITING FOR CALL BACK FROM DR. HAYDEN. PT DENIES ANY PAIN OR CHEST PAIN UP TO TIS TIME. WILL CONTINUE TO MONITOR.
--- NOTE | 2020-02-02 09:45 | NUR ---
MS RN NOTES SEEN AND EVALUATED BY DR. ERVIN, INFORMED ABPUT PT'S PREFERENCE WITH STRESS TEST. JUST RECEIVED AN ORDER FROM DR. KAY, CTA, PT OKAY WITH IT TODAY. WILL PREPARE CONSENT. WILL CONTINUE OT MONITOR.
--- NOTE | 2020-02-02 14:22 | NUR ---
MS RN NOTES PT REFUSED STRESS TEST AND CTA. RISKS AND BENEFITS MADE AWARE. PT CALLED DR. HAYDEN'S OFFICE FOR OUTPATIENT STRESS TEST AND CTA. HOSPITALIST/SK AND INFORMED DR. KAY WELL. PT PREFERS TO GO AMA INSTEAD BUT REFUSES TO SIGN AMA FORM. CHARGE NURSE/SHELDON MADE AWARE WELL.
--- NOTE | 2020-02-02 14:23 | NUR ---
MS RN AMA DISCHARGE NOTES PT AWAKE, A/O X4. TOLERATING RA, WITH NO RESPIRATORY DISTRESS NOTED. PT DENIES ANY PAIN OR DISCOMFORT AT THE TIME OF DISCHARGE. SKIN INTACT, NO PICTURES TAKEN ANG FILED. PT REFUSES TO SIGN AMA FORM STATING SHE ONLY PREFERS DR HAYDEN THAN DR KAY. RN EXPLAINED TO PT, STILL INSIST TO REFUSE. ALL BELONGINGS WITH THE PT. PIV TO RFA G24, REMOVED AND APPLIED DRY DRESSING. PT ACCOMPANIED BY HER CAREGIVER. PT ESCORTED TO THE LOBBY BY [facility]. LEFT THE UNIT AT 1410. CHARGE NURSE/SHELDON MADE AWARE PT STILL REFUSE TO SIGN AMA FORM. HOSPITALIST/SK AWARE WELL.
[2020-02-03] MEDS ORDERED: REGADENOSON 0.4 MG/5 ML DISP.SYRIN IVP ONE (08:00)
== END 2020-02-02 14:30 | disposition left against medical advice (07) | DRG 303 ==
LOC: ER 16:35 → TELE 19:58 → MED 02-02 09:01
PROVIDERS: ADMIT Nurse Practitioner Acute Care; ATTEND Nurse Practitioner Acute Care
DX: I25.10 Atherosclerotic heart disease of native coronary artery without angina pectoris (principal); I48.20 Chronic atrial fibrillation, unspecified; G47.33 Obstructive sleep apnea (adult) (pediatric); E78.5 Hyperlipidemia, unspecified; J44.9 Chronic obstructive pulmonary disease, unspecified; I10 Essential (primary) hypertension; I25.2 Old myocardial infarction; H54.8 Legal blindness, as defined in USA; F32.9 Major depressive disorder, single episode, unspecified; G47.00 Insomnia, unspecified; E11.42 Type 2 diabetes mellitus with diabetic polyneuropathy; Z88.1 Allergy status to other antibiotic agents; Z88.8 Allergy status to other drugs, medicaments and biological substances; Z79.82 Long term (current) use of aspirin; Z79.84 Long term (current) use of oral hypoglycemic drugs; Z79.899 Other long term (current) drug therapy; F17.210 Nicotine dependence, cigarettes, uncomplicated; E66.01 Morbid (severe) obesity due to excess calories; Z68.38 Body mass index [BMI] 38.0-38.9, adult; Z90.710 Acquired absence of both cervix and uterus
CPT/HCPCS: 36415; 71045-TC; 80048-TC; 80061-TC; 82962-TC; 83735-TC; 84100-TC; 84484-TC; 85025-TC; 87081-TC; 93307-TC; 94799-TC; 97116-TC; 97530-TC; G0378; J1650; J1815

== ENCOUNTER 2021-06-29 15:46 | Emergency (ER) | payer MEDICARE, OTHER ==
[~2021-06-29] VITALS: Ht 160 cm; Wt 98.4 kg
[~2021-06-29 15:46] MED LIST changes: +ALPR0.5T8 PO; -CEFU500T66 PO; +DIVA-78 PO; -ISOS30TA6 PO; +ISOS30TA86 PO; +NITR0.4T48 SL; +POTA10CA43 PO; -PRED20TA PO; -PREG50CA PO; +TIOT4MIS2 INH
--- NOTE | 2021-06-29 16:12 | NUR ---
BIBRA 102 FROM HOME C/O DIFFICULTY SPEAKING STARTED JUN 25, 2021. PATIENT A/OX4, BREATHING EVEN AND UNLABORED, NO SOB NOTED.
--- NOTE | 2021-06-29 16:26 | NUR ---
JUVENAL SON [phone] STATES PT "ON BIPAP AT NIGHT AND SOMETIMES GETS BREATHING TREATMENTS."
--- NOTE | 2021-06-29 16:55 | NUR ---
IV LINE ESTABLISHED BLOOD DRAWN AND SENT TO LAB.
--- NOTE | 2021-06-29 18:03 | NUR ---
PATIENT A/OX4, AMBULATORY TO RESTROOM.
[2021-06-29 18:06] LABS: BASOPHILS % (AUTO) 0.4 % (0.0-2.0); EOSINOPHILS % (AUTO) 1.3 % (0.0-6.0); HEMATOCRIT 36 % (33-45); HEMOGLOBIN 12.4 g/dL (11.5-14.8); LYMPHOCYTES # (AUTO) 2.6 K/uL (0.8-4.8); LYMPHOCYTES % (AUTO) 26.1 % (20.0-44.0); MEAN CORPUSCULAR HGB CONC 34 g/dl (31.0-36.0); MEAN CORPUSCULAR VOLUME 91 fL (82-100); MONOCYTES # (AUTO) 0.6 K/uL (0.1-1.30); MONOCYTES % (AUTO) 6.4 % (2.0-12.0); NEUTROPHILS # (AUTO) 6.6 K/uL (1.8-8.9); NEUTROPHILS % (AUTO) 65.8 % (43.0-81.0); PLATELET COUNT (AUTO) 222 K/uL (150-450); RED BLOOD CELL COUNT(AUTO) 3.99 MIL/uL (4.0-5.2); WHITE BLOOD COUNT (AUTO) 10.1 K/uL (4.3-11.0)
[2021-06-29 19:16] LABS: CARBON DIOXIDE 25 mmol/L (21-32); CHLORIDE 105 mmol/L (98-107); CREATININE 0.7 mg/dL (0.6-1.3); GLUCOSE 114 mg/dL (74-106); POTASSIUM 3.9 mmol/L (3.5-5.1); SODIUM SERUM 140 mmol/L (136-145); UREA NITROGEN, BLOOD 11 mg/dL (7-18)
[2021-06-29 19:55] VITALS: BP 145/88
--- NOTE | 2021-06-29 19:55 | NUR ---
Patient discharged to home in stable condition. Written and verbal after care instructions given. Patient verbalizes understanding of instruction.
== END 2021-06-29 19:57 | disposition home or self-care (01) ==
LOC: ER 16:27
DX: F80.9 Developmental disorder of speech and language, unspecified (principal); I10 Essential (primary) hypertension; E11.9 Type 2 diabetes mellitus without complications; I48.91 Unspecified atrial fibrillation; J44.9 Chronic obstructive pulmonary disease, unspecified; K21.9 Gastro-esophageal reflux disease without esophagitis; Z88.0 Allergy status to penicillin; Z88.1 Allergy status to other antibiotic agents; Z88.8 Allergy status to other drugs, medicaments and biological substances; Z79.82 Long term (current) use of aspirin; Z79.899 Other long term (current) drug therapy
CPT/HCPCS: 36415; 70450-TC; 71045-TC; 80048-TC; 80164-TC; 84484-TC; 85025-TC